=== PATIENT | male | born 1945 | race Two or more races ===

== ENCOUNTER 2023-06-18 16:07 | Emergency (ER) | payer SELFPAY ==
[~2023-06-18] VITALS: Ht 172.7 cm; Wt 87.2 kg
[2023-06-18 19:02] VITALS: BP 100/44; PULSE 90; RESP 18; TEMP 98; O2SAT 98
[2023-06-18] MEDS ORDERED: NAP500T PO (20:51)
[2023-06-18] MEDS ORDERED: ACETAMINOPHEN 325 MG TAB PO ONE (21:00)
== END 2023-06-18 21:09 | disposition home or self-care (01) ==
LOC: ER 16:07
DX: S63.592A Other specified sprain of left wrist, initial encounter (principal); S60.222A Contusion of left hand, initial encounter; Z79.899 Other long term (current) drug therapy; W01.0XXA Fall on same level from slipping, tripping and stumbling without subsequent striking against object, initial encounter; Y93.89 Activity, other specified; Y92.89 Other specified places as the place of occurrence of the external cause; Y99.8 Other external cause status
CPT/HCPCS: 29125; 73130